=== PATIENT | female | born 1990 | race Caucasian/White ===

== ENCOUNTER 2018-02-19 10:52 | Emergency (ER) | payer OTHER ==
[~2018-02-19] VITALS: Ht 152.4 cm; Wt 93.9 kg
[2018-02-19 10:55] VITALS: BP 130/80
--- NOTE | 2018-02-19 11:00 | NUR ---
Gave report to Chris BATES.
--- NOTE | 2018-02-19 11:07 | NUR ---
PT. CAME INTO THE ED DUE TO R MID LOWER BACK PAIN X 1 DAY. PT. HAS 7/10 ACHING PRESSURE PAIN IN R MID BACK THAT IS NON RADIATING. PT. STATES " AT WORK I HAVE TO USE A STAND AND PULL BOXES AND I REACH A LOT AND IT WASNT UNTIL THE MORNING AFTER I GOT OFF THAT I STARTED FEELING THAT PAIN, THE DAY GOES ON IT GETS WORSE". PT. DENIES ANY COUGH AT THIS TIME. DENIES FEVERS. BRUISING NOTED TO THE BACK. DENIES ANY FALLS. ER MD NOTIFIED. WILL CONTINUE TO MONITOR.
[2018-02-19 11:21] VITALS: BP 130/80
--- NOTE | 2018-02-19 11:21 | NUR ---
Patient discharged with v/s stable. Written and verbal after care instructions given and explained. Patient alert, oriented and verbalized understanding of instructions. Ambulatory with steady gait. All questions addressed prior to discharge. ID band removed. Patient advised to follow up with PMD. Rx of IBUPROFEN 800MG given. Patient educated on indication of medication including possible reaction and side effects. Opportunity to ask questions provided and answered.
== END 2018-02-19 11:21 | disposition home or self-care (01) ==
LOC: MED 10:52
DX: S39.012A Strain of muscle, fascia and tendon of lower back, initial encounter (principal); J45.909 Unspecified asthma, uncomplicated; R03.0 Elevated blood-pressure reading, without diagnosis of hypertension; X58.XXXA Exposure to other specified factors, initial encounter; Y93.89 Activity, other specified; Y92.89 Other specified places as the place of occurrence of the external cause; Y99.8 Other external cause status
CPT/HCPCS: 99283

== ENCOUNTER 2022-06-22 23:20 | Emergency (ER) | payer OTHER ==
[~2022-06-22] VITALS: Ht 154.9 cm; Wt 94.3 kg
[2022-06-22 23:28] VITALS: BP 134/72
--- NOTE | 2022-06-22 23:31 | NUR ---
TO LOBBY A/W BED AMBULATORY
[2022-06-23] MEDS ORDERED: CYCL-711 PO (00:30)
[2022-06-23] MEDS ORDERED: LID5T TP (00:30)
[2022-06-23] MEDS ORDERED: NAPR-54 PO (00:30)
[2022-06-23] MEDS ORDERED: IBUPROFEN 800 MG TAB PO ONE (00:30)
[2022-06-23 00:50] VITALS: BP 134/72
--- NOTE | 2022-06-23 00:50 | NUR ---
Patient discharged with v/s stable. Written and verbal after care instructions given and explained. Patient alert, oriented and verbalized understanding of instructions. Ambulatory with steady gait. All questions addressed prior to discharge. ID band removed. Patient advised to follow up with PMD. Rx of FLEXERIL, LIDODERM, NAPROSYN given. Patient educated on indication of medication including possible reaction and side effects. Opportunity to ask questions provided and answered.
== END 2022-06-23 00:50 | disposition home or self-care (01) ==
LOC: MED 23:20
DX: S16.1XXA Strain of muscle, fascia and tendon at neck level, initial encounter (principal); J45.909 Unspecified asthma, uncomplicated; V49.88XA Car occupant (driver) (passenger) injured in other specified transport accidents, initial encounter; Y93.89 Activity, other specified; Y92.89 Other specified places as the place of occurrence of the external cause; Y99.8 Other external cause status
CPT/HCPCS: 99283